=== PATIENT | female | born 1965 | race Caucasian/White ===

== ENCOUNTER → 2017-09-17 | Day surgery (SDC) | payer OTHER ==
[2017-09-02 09:37] VITALS: Ht 170.2 cm; Wt 100.0 kg
[~2017-09-17] VITALS: Ht 170.2 cm; Wt 100.0 kg
[~2017-09-17] MED LIST: ATOR10TA82 PO; BUPIVACAINE 0.5 % 5 MG/1 ML PF 10ML VIAL ONE; CARB200T3 PO; CHOL400T PO; COEN50CA9 PO; CYAN5000 PO; DIPH-416 PO; DIPH25CA65 PO; FEXO1TAB49 PO; GLC/500 PO; HYG/25 PO; LIDOCAINE HCL 1% 20 ML VIAL ONE; LRS20 PO; MAGN1CAP4 PO; METF750T PO; MOME200A INH; MULT-55 PO; NAPR1TAB9 PO; OMEG12006 PO; ONDA4TAB46 PO; PIND10TA PO; POTACAP PO; PRLSR20 PO; TIZA4CAP PO; VERA240T20 PO; VNTHFA/IN INH
--- NOTE | 2017-09-17 06:53 | History & Physical Bridge - [place] ---
H&P Re-Evaluation Bridge Note: I have examined the patient, reviewed the History & Physical and in the interval since the performance of the History & Physical I have noted the following changes of clinical significance: No changes noted
--- NOTE | 2017-09-17 07:24 | [facility] Post Operative Brief Note ---
Immediate Operative Summary Operative Date Sep 17, 2017. Pre-Operative Diagnosis Right Carpal Tunnel Syndrome Post-Operative Diagnosis Same Procedure(s) Performed Right Carpal Tunnel Release Surgeon Dr. Jacobs Food Equipment Service Technician Surgeon(s) None Estimated Blood Loss None Findings Consistent with Post-Op Diagnosis Specimens None Drains None Anesthesia Type Local Complication(s) none
[2017-09-17 07:26] VITALS: TEMP 36.9
--- NOTE | 2017-09-17 07:28 | Discharge Instructions-SurgCtr ---
Discharge Instructions Date of Service Sep 17, 2017. Visit Reason for Visit: Right Carpal Tunnel Syndrome Discharge Discharge Diagnosis / Problem: same Discharge Goals Goal(s): Improve function Medications Stopped Medications Name(s): metformin. last dose friday. Activity Recommendations Activity Limitations: as noted below Lifting Limitations: no more than 5 pounds Exercise/Sports Limitations: until after follow-up appointment May Resume Sexual Activity: after follow-up appointment Shower/Bathe: keep incision dry light use of right hand Anesthesia . Post Anesthesia Instructions: If you have had General Anesthesia or IV Sedation: * Do not drive today. * Resume driving when surgeon permits. * Do not make important decisions or sign legal documents today. * Call surgeon for: 1. Temperature elevations greater than 101 degrees F. 2. Uncontrollable pain. 3. Excessive bleeding. 4. Persistent nausea and vomiting. 5. Medication intolerance (nausea, vomiting or rash). * For nausea and vomiting use only clear liquids such as: tea, soda, bouillon until nausea subsides, then gradually increase diet as tolerated. * If you have any concerns or questions, call your surgeon's office. If physician is unavailable and it is an emergency, call 911 or go to the nearest emergency room. . Diet Recommendations Home Diet: no limitations Procedures Procedures Performed: Right Carpal Tunnel Release Pending Studies Studies pending at discharge: no Medical Emergencies . Who to Call and When: Medical Emergencies: If at any time you feel your situation is an emergency, please call 911 immediately. . Non-Emergent Contact Non-Emergency issues call your: Primary Care Provider . . "Provider Documentation" section prepared by Bienvenido Jacobs. .
[2017-09-17 07:57] VITALS: BP 142/66; PULSE 71; O2SAT 97
--- NOTE | 2017-09-23 16:29 | OPERATIVE REPORT ---
DATE OF OPERATION: 09/17/2017 PREOPERATIVE DIAGNOSIS: Right carpal tunnel syndrome. POSTOPERATIVE DIAGNOSIS: Right carpal tunnel syndrome. PROCEDURE: Release of right carpal canal. ANESTHESIA: Straight local. COMPLICATIONS: Zero. TOURNIQUET TIME 11 minutes. BLOOD LOSS: 0. DESCRIPTION OF PROCEDURE: The patient was taken to the minor procedure room at [facility]. A tourniquet applied to right upper extremity, prepped and draped sterile. Anesthetized the area with 1% Xylocaine. Inflated tourniquet. We commenced with surgery. Made a skin incision, fascial incision, dissected carpal tunnel distally to proximally, approximately 1 cm proximal to the proximal crease of the wrist. The nerve was decompressed. We irrigated and closed with 4-0 nylon suture. Sterile dressing applied. The patient returned to recovery room satisfactory and stable. There were no complications. I attest to the content of the Intraoperative Record and any orders documented therein. Any exception s are noted below.
== END | disposition home or self-care (01) ==
LOC: X.SURG 06:09
PROVIDERS: ATTEND Orthopaedic Surgery Orthopaedic Surgery of the Spine
DX: G56.01 Carpal tunnel syndrome, right upper limb (principal); E11.9 Type 2 diabetes mellitus without complications; I11.9 Hypertensive heart disease without heart failure; J45.909 Unspecified asthma, uncomplicated; G71.19 Other specified myotonic disorders; Z88.2 Allergy status to sulfonamides; Z80.3 Family history of malignant neoplasm of breast; Z82.49 Family history of ischemic heart disease and other diseases of the circulatory system